=== PATIENT | male | born 1945 | race Caucasian/White ===

== ENCOUNTER → 2018-10-15 | Outpatient (CLI) | payer OTHER ==
--- NOTE | ~2018-10-15 | PATH ---
[facility] [address] [place] [address] PATHOLOGY RPT PROCEDURE Name: TRAVON ERNANDEZ Room #: REG [facility]#: [id number] Admission: 10/15/18 Date of : 45 Discharge: Report #: [id number] Path Case #: [id number] Note [facility] Accession Number: [id number] TESTS RESULT FLAG UNITS REF RANGE LAB Clinician Provided Cytology Information No. of containers..01 Other (Miscellaneous) Source: 01 LT PARTOID MASS DIAGNOSIS: 02 LEFT PARTOID MASS, FINE NEEDLE ASPIRATION INADEQUATE, INSUFFICIENT CELLS FOR STUDY. ESSENTIALLY ACELLULAR SPECIMEN. SPECIMEN CONSISTS OF BLOOD. THIS INTERPRETATION INCLUDES EVALUATION OF A CELL BLOCK. Comment: Specimen is entirely comprised of blood and it's elements. It is therefore considered acellular due to lack of glandular tissue, stromal tissue or lymphoid tissue. Please correlate clinically. Signed out by: 02 Amanda Braswell MD, Pathologist NPI- [id number] Performed by: Tyson Negrete, Automatic Chief ([facility]) Gross description: 01 28ML, COLORLESS, CLOUDY /LCS FLAG LEGEND: L-Low Normal,H-High Normal,LL-Alert Low,HH-Alert High <-Panic Low,>-Panic High,A-Abnormal,AA-Critical Abnormal Performed at: [address] [place] [address] Lowell Mora MD, [address] [id number] Amanda Braswell MD, Specimen Comment: A courtesy copy of this report has been sent to Specimen Comment: [phone]. Specimen Comment: Report sent to Performed at: [address], [place], [place] [id number] MD Lowell Mora MD Phone: [phone]
== END | disposition home or self-care (01) ==
LOC: ULTRA 08:22
DX: K11.8 Other diseases of salivary glands (principal)